=== PATIENT | female | born 1960 | race Caucasian/White ===

== ENCOUNTER → 2018-04-04 | Outpatient (CLI) | payer OTHER ==
[~2018-04-04] MED LIST: BUSP5TAB59 GT; ESTR0.5T3 PO; GABA-531 PO; HCTZ12.5T GT; LOSA50TA6 PO; MELO-195 PO; SIMV20TA3 PO; TRAM50TA2 PO; TRAZ50TA67 PO
[2018-04-04 06:58] LABS: BASOPHILS % (AUTO) 1 % (0-10); EOSINOPHILS # (AUTO) 0.3 10^3/uL (0.0-0.3); EOSINOPHILS % (AUTO) 4 % (0-10); HEMATOCRIT 40 % (35-52); HEMOGLOBIN 13.3 G/DL (11.5-16.0); LYMPHOCYTES # (AUTO) 1.9 X 10^3 (1.0-4.0); LYMPHOCYTES % (AUTO) 27 % (12-44); MEAN CORPUSCULAR HEMOGLOBIN 30 PG (25-34); MEAN CORPUSCULAR HGB CONC 33 G/DL (32-36); MEAN CORPUSCULAR VOLUME 90 FL (80-99); MEAN PLATELET VOLUME 8.8 FL (7.4-10.4); MONOCYTES # (AUTO) 0.7 X 10^3 (0.0-1.0); MONOCYTES % (AUTO) 10 % (0-12); NEUTROPHILS # (AUTO) 4.2 X 10^3 (1.8-7.8); NEUTROPHILS % (AUTO) 59 % (42-75); PLATELET COUNT 322 10^3/uL (130-400); RED BLOOD COUNT 4.46 10^6/uL (4.35-5.85); RED CELL DISTRIBUTION WIDTH 12.8 % (10.0-14.5); WHITE BLOOD COUNT 7.2 10^3/uL (4.3-11.0)
[2018-04-04 07:21] LABS: ALANINE AMINOTRANSFERASE 25 U/L (0-55); ALBUMIN 4.3 GM/DL (3.2-4.5); ALKALINE PHOSPHATASE 67 U/L (40-136); BILIRUBIN,TOTAL 0.4 MG/DL (0.1-1.0); BUN/CREATININE RATIO 17; CALCIUM 9.7 MG/DL (8.5-10.1); CARBON DIOXIDE 25 MMOL/L (21-32); CHLORIDE 105 MMOL/L (98-107); CHOLESTEROL 162 MG/DL (< 200); CREATININE SERUM 0.89 MG/DL (0.60-1.30); GFR ESTIMATED > 60; GLUCOSE 107 MG/DL (70-105); HDL CHOLESTEROL 49 MG/DL (40-60); POTASSIUM 4.1 MMOL/L (3.6-5.0); SODIUM 139 MMOL/L (135-145); TOTAL PROTEIN 7.4 GM/DL (6.4-8.2); TRIGLYCERIDES 72 MG/DL (<150); VLDL CHOLESTEROL 14 MG/DL (5-40)
== END ==
LOC: LAB 06:41
PROVIDERS: ATTEND Nurse Practitioner Family
DX: Z00.00 Encounter for general adult medical examination without abnormal findings (principal); E78.5 Hyperlipidemia, unspecified; I10 Essential (primary) hypertension
CPT/HCPCS: 36415; 80053; 80061; 84439; 84443; 85025

== ENCOUNTER → 2018-10-12 | Outpatient (CLI) | payer OTHER ==
--- NOTE | 2018-10-12 17:48 | Diagnostic Imaging Report ---
INDICATION: Pneumonia. TECHNIQUE: Two-view chest, 5:05 p.m. CORRELATION STUDY: 05/22/2008. FINDINGS: The heart size, mediastinal configuration and pulmonary vasculature are within normal limits. The lungs are clear with no consolidating infiltrate. There is no significant pleural effusion or pneumothorax. Mildly prominent endplate osteophytes at the lower thoracic spine. IMPRESSION: 1. Negative for acute abnormality of the chest. Dictated by: Dictated on workstation # [id number]
== END ==
LOC: RAD 16:54
PROVIDERS: ATTEND Family Medicine
DX: J18.9 Pneumonia, unspecified organism (principal)
CPT/HCPCS: 71046

== ENCOUNTER → 2021-09-25 | Outpatient (CLI) | payer OTHER ==
--- NOTE | 2021-09-25 12:09 | Diagnostic Imaging Report ---
INDICATION: Right ankle pain and swelling EXAMINATION: Right ankle from 09/25/2021 FINDINGS: 3 views of the ankle. There is posterior and plantar calcaneal spurring. Chronic appearing density seen along the distal Achilles tendon. There is spurring throughout the mid foot. There is spurring along the medial malleolus. Sclerotic areas within the distal fibula likely bone islands. No acute fractures or dislocations appreciated. Ankle mortise and talar dome unremarkable. IMPRESSION: 1. Diffuse chronic changes with no acute osseous abnormality. Dictated by: Dictated on workstation # [id number]
== END ==
LOC: RAD 11:18
PROVIDERS: ATTEND Family Medicine
DX: M25.571 Pain in right ankle and joints of right foot (principal); M25.471 Effusion, right ankle
CPT/HCPCS: 73610

== ENCOUNTER → 2021-10-26 | Outpatient (CLI) | payer OTHER ==
--- NOTE | 2021-10-26 17:37 | Diagnostic Imaging Report ---
INDICATION: Low back pain FINDINGS: 3 views of the lumbar spine demonstrate normal alignment. There is no subluxation or fracture. Moderate degenerative changes seen throughout the disc spaces and facet joints. There is no osseous lesion. IMPRESSION: Diffuse degenerative changes Dictated by: Dictated on workstation # [id number]
== END ==
LOC: RAD 13:51
PROVIDERS: ATTEND Family Medicine
DX: M47.816 Spondylosis without myelopathy or radiculopathy, lumbar region (principal)
CPT/HCPCS: 72100

== ENCOUNTER → 2021-12-08 | Outpatient (RCR) | payer OTHER | END | disposition home or self-care (01) | PROVIDERS: ATTEND Family Medicine | DX: M51.36 Other intervertebral disc degeneration, lumbar region (principal) ==

== ENCOUNTER → 2022-01-07 | Outpatient (RCR) | payer OTHER | END | disposition home or self-care (01) | PROVIDERS: ATTEND Family Medicine | DX: M51.36 Other intervertebral disc degeneration, lumbar region (principal); I10 Essential (primary) hypertension; E11.9 Type 2 diabetes mellitus without complications ==

== ENCOUNTER → 2022-05-06 | Outpatient (CLI) | payer OTHER ==
--- NOTE | 2022-05-06 16:16 | Diagnostic Imaging Report ---
INDICATION: Low back pain with left leg pain and bilateral heel numbness. EXAMINATION: Lumbar spine MRI without contrast on 05/06/2022. FINDINGS: There is normal height and alignment of the vertebral bodies. The tip of the conus is unremarkable in appearance and location. L1-L2: There is bilateral facet hypertrophy. There is no central stenosis. Mild bilateral neuroforaminal narrowing is noted. L2-L3: There is disc desiccation with a mild broad-based bulging disc. There is bilateral facet and ligamentum flavum hypertrophy with no significant central stenosis. There is mild bilateral neuroforaminal narrowing. L3-L4: There is intervertebral disc space narrowing, disc desiccation, and a mild broad-based bulging disc. There is bilateral facet and ligamentum flavum hypertrophy. There is minimal central narrowing. There is mild bilateral neuroforaminal narrowing. L4-L5: There is intervertebral disc space narrowing, disc desiccation, and a broad-based bulging disc. There is bilateral facet and ligamentum flavum hypertrophy. There is severe central stenosis with narrowing of the lateral recesses bilaterally. There is moderate bilateral neuroforaminal narrowing. L5-S1: There is disc desiccation with a central disc protrusion containing an annular tear. There is bilateral facet and ligamentum flavum hypertrophy. There is moderate central stenosis with narrowing of the lateral recesses, left greater than right. Moderate bilateral neuroforaminal narrowing, left greater than right. The visualized intra-abdominal structures are unremarkable. IMPRESSION: Multilevel degenerative findings as detailed above with the worst findings at L4-L5 where there is severe central stenosis with narrowing of the lateral recesses bilaterally. Dictated by: Dictated on workstation # [id number]
== END ==
LOC: RAD 14:35
PROVIDERS: ATTEND Family Medicine
DX: M47.26 Other spondylosis with radiculopathy, lumbar region (principal); M47.817 Spondylosis without myelopathy or radiculopathy, lumbosacral region; M51.16 Intervertebral disc disorders with radiculopathy, lumbar region; M51.27 Other intervertebral disc displacement, lumbosacral region; M51.37 Other intervertebral disc degeneration, lumbosacral region; M48.061 Spinal stenosis, lumbar region without neurogenic claudication; M48.07 Spinal stenosis, lumbosacral region
CPT/HCPCS: 72148